=== PATIENT | male | born 1975 | race Caucasian/White ===

== ENCOUNTER 2016-12-01 21:17 | Emergency (ER) | payer OTHER, BC ==
[~2016-12-01] VITALS: Ht 172.7 cm; Wt 83.9 kg
== END 2016-12-01 22:52 | disposition home or self-care (01) ==
LOC: ED 21:17
DX: S46.911A Strain of unspecified muscle, fascia and tendon at shoulder and upper arm level, right arm, initial encounter (principal); S66.811A Strain of other specified muscles, fascia and tendons at wrist and hand level, right hand, initial encounter; F17.200 Nicotine dependence, unspecified, uncomplicated; X50.0XXA Overexertion from strenuous movement or load, initial encounter
CPT/HCPCS: 73030; 73080; 99283